=== PATIENT | female | born 1975 | race Caucasian/White ===

== ENCOUNTER 2020-01-02 07:11 | Day surgery (SDC) | payer MEDICAID ==
[2019-12-26 14:41] LABS: CLARITY,URINE SLIGHTLY CLOUDY (Clear); COLOR,URINE YELLOW (Yellow); GLUCOSE, URINE NEGATIVE (Neg); KETONES,URINE NEGATIVE (Neg); LEUKOCYTE ESTERASE ,URINE NEGATIVE (Neg); NITRITES, URINE NEGATIVE (Neg); OCCULT BLOOD,URINE NEGATIVE (Neg); PH,URINE 6.5 (4.8-8.0); PROTEIN,URINE NEGATIVE (Neg)
[2019-12-26 14:42] LABS: BASOPHILS # (AUTO) 0.1 X10'3 (0-0.2); BASOPHILS % (AUTO) 0.8 % (0-1); EOSINOPHILS # (AUTO) 0.1 X10'3 (0-0.9); EOSINOPHILS % (AUTO) 1.4 % (0-6); LYMPHOCYTES # (AUTO) 2.4 X10'3 (1.1-4.8); LYMPHOCYTES % (AUTO) 34.6 % (21-51); MEAN CORPUSCULAR HEMOGLOBIN 26.9 PG (27.0-31.0); MEAN CORPUSCULAR VOLUME 81.3 FL (78-98); MEAN PLATELET VOLUME 7.7 FL (7.4-10.4); MONOCYTES # (AUTO) 0.5 X10'3 (0-0.9); MONOCYTES % (AUTO) 6.9 % (2-12); NEUTROPHILS % (AUTO) 56.3 % (42-75); PRE OP HEMATOCRIT 44.9 % (35.0-45.0); PRE OP HEMOGLOBIN 14.8 g/dL (12.0-16.0); PRE OP PLATELET COUNT 377 X10'3 (140-440); RED BLOOD COUNT 5.52 X10'6 (4.20-5.60); RED CELL DISTRIBUTION WIDTH 17.1 % (11.5-14.5)
[2019-12-26 14:44] LABS: UA COLLECTION TYPE CLN CATCH MIDSTREAM
[2019-12-26 14:51] LABS: BACTERIA,URINE 1+ /HPF (Neg); MUCUS STRANDS FEW /LPF (Neg); RBC,URINE 0-2 /HPF (0-2); SQUAMOUS EPITHELIAL CELL,UR FEW /LPF (FEW); WBC,URINE 0-4 /HPF (0-4)
[2019-12-26 15:08] LABS: ALBUMIN 3.7 G/DL (3.4-5.0); ALBUMIN/GLOBULIN RATIO 0.8 (1.1-1.5); ALKALINE PHOSPHATASE 121 IU/L (46-116); BLOOD UREA NITROGEN 18 MG/DL (7-18); BUN/CREATININE RATIO 15.9 (6.6-38.0); CALCIUM 9.2 MG/DL (8.5-10.1); CHLORIDE 105 MMOL/L (99-107); CREATININE 1.13 MG/DL (0.40-0.90); PRE OP ALT 50 U/L (30-65); PRE OP ANION GAP 7 (8-16); PRE OP AST 25 U/L (10-37); PRE OP BILIRUB, TOTAL 0.2 MG/DL (0.0-1.0); PRE OP GLUCOSE 101 MG/DL (70-104); PRE OP POTASSIUM 3.9 MMOL/L (3.4-5.1); PRE OP SODIUM 138 MMOL/L (135-145); TOTAL CARBON DIOXIDE 26.5 MMOL/L (24-32); TOTAL PROTEIN 8.2 G/DL (6.4-8.2); eGFR 52 ML/MIN
[2019-12-26 15:10] LABS: HCG SERUM QL NEGATIVE
[2020-01-02] VITALS (19 sets, daily range): BP systolic 123–155; BP diastolic 71–99
[~2020-01-02] VITALS: Ht 165.1 cm; Wt 104.4 kg
[~2020-01-02 07:11] MED LIST: ACCUTANE PO; BUPIVAcaine 0.25% w/Epi /PF 30ml vial ONE; BUPIVAcaine/PF 2.5 mg/ml (0.25%) 30ml vial ONE; CETI-90 PO; CHRM1TAB PO; ESOM20CA23 PO; FLUO-12 PO; SYN0.112T PO; ceFOXitin sod/dextrose 2g/50ml 50 ML IV ONE; clindamycin phosphate 40gm vag cream ONE; famotidine 10mg tablet PO ONE; neomy sulf/polymyxin B sulf. GU irrigation 1ml amp IR ONE; ringers solution, lacted 1,000 ML IV SCH; vasoPRESSIN 20 units/ml inj. ONE
[2020-01-02] MEDS ORDERED: ringers solution, lacted 1,000 ML IV SCH ×2 (08:15)
[2020-01-02] MEDS ORDERED: proCHLORperazine 10 MG/2 ml inj IV PRN ×2 (08:15)
[2020-01-02] MEDS ORDERED: morphine 4 MG/ML inj SYRINge IV PRN ×2 (08:15)
[2020-01-02] MEDS ORDERED: morphine 2 MG/ML inj. syringe IV PRN ×2 (08:15)
[2020-01-02] MEDS ORDERED: meperidine/PF 25mg/ml syringe IV PRN ×5 (08:15)
[2020-01-02] MEDS ORDERED: ondansetron/PF 4mg/2ml inj IV PRN ×3 (08:15→12:30)
[2020-01-02 08:20] LABS: PRE OP PARTIAL THROMB. TIME 30 SECONDS (22-32)
[2020-01-02] MEDS ORDERED: aprepitant 40mg capsule PO ONE (08:29)
[2020-01-02] MEDS ORDERED: LIDOcaine 1%/PF 5ML 10 MG/ML VIAL ONE (09:52)
[2020-01-02] MEDS ORDERED: sevoflurane 250ml liquid IH ONE (09:52)
[2020-01-02] MEDS ORDERED: rocuronium 10mg/ml inj IV ONE (09:56)
[2020-01-02] MEDS ORDERED: fentaNYL /PF 50mcg/ml 5ml ampule ONE (09:56)
[2020-01-02] MEDS ORDERED: midazolam 2 mg/2 ml injection ONE (09:56)
[2020-01-02] MEDS ORDERED: propofol inj 20 ML IV ONE (09:56)
[2020-01-02] MEDS ORDERED: dexamethasone sod phosphate 4mg/ml inj. ONE (09:57)
[2020-01-02] MEDS ORDERED: ondansetron/PF 4mg/2ml inj ONE (10:07)
[2020-01-02] MEDS ORDERED: ePHEDrine 50MG/ML INJ. ONE (10:16)
[2020-01-02] MEDS ORDERED: temazepam 15mg capsule PO PRN (12:30)
[2020-01-02] MEDS ORDERED: diphenhydrAMINE 50 mg/ml inj IV PRN (12:30)
[2020-01-02] MEDS ORDERED: metoclopramide 5 mg/ml inj IV PRN (12:30)
[2020-01-02] MEDS ORDERED: ketorolac trometh. 30mg/ml inj. IV PRN (12:30)
[2020-01-02] MEDS ORDERED: normal saline 500ml IV soln 500 ML IV PRN (12:30)
[2020-01-02] MEDS ORDERED: LORazepam 2 mg/ml vial IV PRN (12:30)
[2020-01-02] MEDS ORDERED: magnesium hydroxide 30ml (MOM) UD suspension PO PRN (12:30)
[2020-01-02] MEDS ORDERED: HYDROcodone/acetaminophen 10/325mg tab PO PRN (12:30)
[2020-01-02] MEDS ORDERED: ketorolac trometh. 30mg/ml inj. ONE (12:30)
--- NOTE | 2020-01-02 12:53 | NUR ---
Received from OR via surgical bed, accompanied by Anesthesiologist Trip and report given by Anesthesiolgist. Lap sites x3 to abdomen open to air CDI, jd pad scant drainage. Patel cath in place draining clear yellow urine. LR IVF at 100cc/hr. VS stable but O2 sats droppped below normal, oral airway placed to assist with breathing. Sats recovered. Will continue to monitor closely.
[2020-01-02] MEDS: meperidine/PF 25mg/ml syringe IV PRN ×2 (13:30→13:41)
--- NOTE | 2020-01-02 14:13 | NUR ---
Report called to receiving nurse. Transferred via surgical bed to room 358A. Belongings sent to patient's room. Special Issues communicated to receiving nurse Tyrel RN /Ailyn RN. Pt stable alert and oriented, BLL call light within reach, pain tolerable at 5/10. Abdomen remains soft and sites remain open to air CDI.
[2020-01-02] MEDS: ringers solution, lacted 1,000 ML IV SCH ×2 (14:16→19:45)
[2020-01-02] MEDS ORDERED: ISOT40CA PO (14:57)
[2020-01-02] MEDS: HYDROcodone/acetaminophen 10/325mg tab PO PRN ×2 (16:55→22:37)
--- NOTE | 2020-01-02 17:35 | NUR ---
Student documentation: I have reviewed all interventions, assessments performed and documented by Renzo CLAYTON from [facility].
--- NOTE | 2020-01-02 18:39 | NUR ---
Problems reprioritized. Patient report given, questions answered & plan of care reviewed with DYLAN GUEVARA.
--- NOTE | 2020-01-02 18:39 | NUR ---
Patient in room [facility]. I have received report from Jessica RICHARDSON and had the opportunity to ask questions and assume patient care.
[2020-01-02] MEDS: docusate sod 100mg capsule PO SCH (19:29)
[2020-01-02] MEDS ORDERED: [UNRECOGNIZED DRUG - OTHER] PO SCH ×2 (21:00)
[2020-01-03] MEDS: HYDROcodone/acetaminophen 10/325mg tab PO PRN ×2 (03:06→07:09)
[2020-01-03 04:00] VITALS: BP 125/60
[2020-01-03] MEDS: ringers solution, lacted 1,000 ML IV SCH (04:30)
[2020-01-03 05:56] LABS: BASOPHILS % (AUTO) 0.2 % (0-1); EOSINOPHILS % (AUTO) 0 % (0-6); HEMATOCRIT 44.4 % (35.0-45.0); HEMOGLOBIN 14.8 g/dl (12.0-16.0); LYMPHOCYTES # (AUTO) 1.3 X10'3 (1.1-4.8); LYMPHOCYTES % (AUTO) 8.5 % (21-51); MEAN CORPUSCULAR HEMOGLOBIN 27.4 PG (27.0-31.0); MEAN CORPUSCULAR HGB CONC 33.2 g/dL (33.0-36.5); MEAN CORPUSCULAR VOLUME 82.3 FL (78-98); MEAN PLATELET VOLUME 7.7 FL (7.4-10.4); MONOCYTES # (AUTO) 0.6 X10'3 (0-0.9); MONOCYTES % (AUTO) 4.2 % (2-12); NEUTROPHILS # (AUTO) 13.3 X10'3 (1.8-7.7); NEUTROPHILS % (AUTO) 87.1 % (42-75); PLATELET COUNT 382 X10'3 (140-440); RED BLOOD COUNT 5.39 X10'6 (4.20-5.60); RED CELL DISTRIBUTION WIDTH 16.9 % (11.5-14.5); WHITE BLOOD COUNT 15.2 X10'3 (4.5-11.0)
[2020-01-03 06:03] LABS: ALBUMIN 3.3 G/DL (3.4-5.0); ANION GAP 4 (8-16); BLOOD UREA NITROGEN 14 MG/DL (7-18); BUN/CREATININE RATIO 12.3 (6.6-38.0); CALCIUM 9.3 MG/DL (8.5-10.1); CHLORIDE 101 MMOL/L (99-107); CREATININE 1.14 MG/DL (0.40-0.90); GLUCOSE 120 MG/DL (70-104); POTASSIUM 3.8 MMOL/L (3.5-5.1); SODIUM 139 MMOL/L (135-145); TOTAL CARBON DIOXIDE 33.7 MMOL/L (24-32); eGFR 52 ML/MIN
--- NOTE | 2020-01-03 06:04 | NUR ---
Problems reprioritized. Patient report given, questions answered & plan of care reviewed with George RICHARDSON.
[2020-01-03 07:00] VITALS: BP 124/85
[2020-01-03] MEDS ORDERED: pantoprazole 40mg Tablet.DR PO SCH (07:30)
[2020-01-03] MEDS: docusate sod 100mg capsule PO SCH (07:43)
[2020-01-03] MEDS ORDERED: cetirizine 10mg tablet PO SCH (08:00)
[2020-01-03] MEDS ORDERED: levoTHYROXINE 112mcg tablet PO SCH (08:00)
[2020-01-03] MEDS ORDERED: enoxaparin 40mg/0.4ml syringe SQ SCH (08:00)
[2020-01-03] MEDS ORDERED: ISOTRETINOIN PO SCH (08:00)
[2020-01-03] MEDS ORDERED: ISOTRETINOIN 40 MG PO SCH ×3 (08:00)
[2020-01-03] MEDS ORDERED: FLUoxetine 20mg capsule PO SCH (08:00)
[2020-01-03] MEDS ORDERED: non-formulary drug (Esomeprazole Magnesium (Nexium) 1 CAP) PO SCH (08:00)
[2020-01-03 11:00] VITALS: BP 113/72
--- NOTE | 2020-01-03 14:21 | NUR ---
Orienting milieu manager: I have reviewed and agree with all interventions, assessments performed and documented by DYLAN Lopez. Orienting legal records manager Administration: For this medication-pass time frame, all medication were reviewed, dispensed, administered and documented per hospital policy by DYLAN Lopez.
== END 2020-01-03 12:12 | disposition home or self-care (01) ==
LOC: PAS 07:11 → SUR 3N 12:29 → PAS 16:06 → UNDOADMOB 16:07 → SUR 3N 16:07 → UNDODISOB 01-03 12:12 → PAS 01-03 12:12
PROVIDERS: ATTEND Obstetrics & Gynecology Obstetrics
DX: D06.9 Carcinoma in situ of cervix, unspecified (principal); N80.1 Endometriosis of ovary; K66.0 Peritoneal adhesions (postprocedural) (postinfection); D25.1 Intramural leiomyoma of uterus; D25.0 Submucous leiomyoma of uterus; E66.01 Morbid (severe) obesity due to excess calories; Z68.37 Body mass index [BMI] 37.0-37.9, adult; F32.9 Major depressive disorder, single episode, unspecified; K21.9 Gastro-esophageal reflux disease without esophagitis; Z87.891 Personal history of nicotine dependence; J45.990 Exercise induced bronchospasm; D64.9 Anemia, unspecified; F41.9 Anxiety disorder, unspecified; E03.9 Hypothyroidism, unspecified; Z87.442 Personal history of urinary calculi; Z88.5 Allergy status to narcotic agent; Z88.2 Allergy status to sulfonamides; Z20.828 Contact with and (suspected) exposure to other viral communicable diseases; Z79.01 Long term (current) use of anticoagulants; Z79.899 Other long term (current) drug therapy; Z90.49 Acquired absence of other specified parts of digestive tract; Z98.890 Other specified postprocedural states; Z80.49 Family history of malignant neoplasm of other genital organs; Z80.42 Family history of malignant neoplasm of prostate; Z80.0 Family history of malignant neoplasm of digestive organs
CPT/HCPCS: 36415; 58552; 71046; 80048; 80053; 81001; 82948; 84703; 85025; 85610; 85730; 86885; 86900; 86901; 87635; 93005; J0694; J1100; J1885; J2175; J2250; J2405; J2704; J3010; J3490; J7120; J8501; A4314; A4618; A7000; J1650

== ENCOUNTER 2021-07-07 13:18 | Outpatient (CLI) | payer MEDICAID ==
[~2021-07-07 13:18] MED LIST changes: -ACCUTANE PO; -BUPIVAcaine 0.25% w/Epi /PF 30ml vial ONE; -BUPIVAcaine/PF 2.5 mg/ml (0.25%) 30ml vial ONE; +ISOT40CA PO; -ceFOXitin sod/dextrose 2g/50ml 50 ML IV ONE; -clindamycin phosphate 40gm vag cream ONE; -famotidine 10mg tablet PO ONE; -neomy sulf/polymyxin B sulf. GU irrigation 1ml amp IR ONE; -ringers solution, lacted 1,000 ML IV SCH; -vasoPRESSIN 20 units/ml inj. ONE
[2021-07-07] MEDS ORDERED: GADOTERATE MEGLUMINE 10 MMOL/20 ML SYRINGE IV ONE (18:33)
== END 2021-07-07 23:59 | disposition home or self-care (01) ==
LOC: RAD 13:18
PROVIDERS: ATTEND Internal Medicine Cardiovascular Disease
DX: R41.0 Disorientation, unspecified (principal); H53.139 Sudden visual loss, unspecified eye
CPT/HCPCS: 70553; A9575

== ENCOUNTER 2023-02-08 09:51 | Emergency (ER) | payer MEDICAID ==
[~2023-02-08] VITALS: Ht 170.2 cm; Wt 119.4 kg
[2023-02-08 10:27] LABS: BASOPHILS # (AUTO) 0.1 X10'3 (0-0.2); EOSINOPHILS # (AUTO) 0.2 X10'3 (0-0.9); EOSINOPHILS % (AUTO) 2.2 % (0-6); HEMATOCRIT 45.5 % (35.0-45.0); HEMOGLOBIN 14.9 g/dl (12.0-16.0); LYMPHOCYTES # (AUTO) 1.8 X10'3 (1.1-4.8); LYMPHOCYTES % (AUTO) 24.6 % (21-51); MEAN CORPUSCULAR HGB CONC 32.8 g/dL (33.0-36.5); MEAN CORPUSCULAR VOLUME 85.3 FL (78-98); MEAN PLATELET VOLUME 7.8 FL (7.4-10.4); MONOCYTES # (AUTO) 0.4 X10'3 (0-0.9); MONOCYTES % (AUTO) 6.1 % (2-12); NEUTROPHILS # (AUTO) 4.8 X10'3 (1.8-7.7); NEUTROPHILS % (AUTO) 66.1 % (42-75); PLATELET COUNT 314 X10'3 (140-440); RED BLOOD COUNT 5.33 X10'6 (4.20-5.60); RED CELL DISTRIBUTION WIDTH 17.6 % (11.5-14.5); WHITE BLOOD COUNT 7.2 X10'3 (4.5-11.0)
--- NOTE | 2023-02-08 10:35 | NUR ---
Stroke RN Amber at bedside.
[2023-02-08 10:41] LABS: ALANINE AMINOTRANSFERASE 38 U/L (12-78); ALBUMIN 3.9 G/DL (3.4-5.0); ALKALINE PHOSPHATASE 171 IU/L (46-116); ANION GAP 5 (8-16); ASPARTATE AMINO TRANSFERASE 24 U/L (10-37); BILIRUBIN,TOTAL 0.4 MG/DL (0.1-1.0); BLOOD UREA NITROGEN 11 MG/DL (7-18); BUN/CREATININE RATIO 8.8 (10.0-20.0); CALCIUM 9.1 MG/DL (8.5-10.1); CHLORIDE 100 MMOL/L (99-107); CREATININE 1.25 MG/DL (0.40-0.90); GLUCOSE 91 MG/DL (70-104); POTASSIUM 3.9 MMOL/L (3.5-5.1); SODIUM 137 MMOL/L (135-145); TOTAL CARBON DIOXIDE 31.6 MMOL/L (24-32); TOTAL PROTEIN 7.7 G/DL (6.4-8.2); eCRCL 54 ML/MIN; eGFR 46 ML/MIN
[2023-02-08 10:48] LABS: PRO BRAIN NATRIURETIC PEPTIDE < 30 PG/ML (0-125)
[2023-02-08 11:03] LABS: APTT 29 SECONDS (22-32); PROTHROMBIN TIME 10.3 SECONDS (9.0-12.0)
[2023-02-08] MEDS ORDERED: iohexol 350MG/ML 100ml bottle IV ONE (11:08)
[2023-02-08] MEDS ORDERED: normal saline 1000ml 1,000 ML IV ONE (11:15)
[2023-02-08 14:38] VITALS: BP 130/95; PULSE 78; RESP 18; O2SAT 98
== END 2023-02-08 14:40 | disposition home or self-care (01) ==
LOC: ER 09:52
DX: E86.0 Dehydration (principal); N17.9 Acute kidney failure, unspecified
CPT/HCPCS: 36415; 70450; 70496; 70498; 71045; 80053; 82948; 83880; 84484; 85025; 85610; 85730; 93005; 96360; 99285; J3490; J7030; Q9967